=== PATIENT | male | born 1980 | race Asian ===

== ENCOUNTER 2022-10-21 19:44 | Inpatient (IN) | payer MEDICAID ==
[~2022-10-21] VITALS: Ht 162.6 cm; Wt 56.7 kg
--- NOTE | 2022-10-21 19:46 | NUR ---
PT BROUGHT TO BED 6 VIA [facility]
[2022-10-21 19:55] VITALS: BP 136/84; PULSE 113; RESP 26; TEMP 98.4; O2SAT 97
--- NOTE | 2022-10-21 20:02 | NUR ---
ERMD evaluating patient at this time.
--- NOTE | 2022-10-21 20:03 | NUR ---
Patient being evaluated by physician at bedside.
--- NOTE | 2022-10-21 20:18 | NUR ---
PT TO CT VIA [facility]
[2022-10-21 20:27] LABS: BASOPHILS # (AUTO) 0.1 K/uL (0.00-0.22); BASOPHILS % (AUTO) 0.7 % (0.0-2.0); EOSINOPHILS # (AUTO) 0.1 K/uL (0-0.4); EOSINOPHILS % (AUTO) 0.8 % (0.0-4.0); HEMATOCRIT 30.8 % (36-52); HEMOGLOBIN 10.2 g/dL (12.0-18.0); LYMPHOCYTES # (AUTO) 1.1 K/uL (2.0-11.5); LYMPHOCYTES % (AUTO) 13.6 % (20.5-51.1); MEAN CORPUSCULAR HEMOGLOBIN 32 pg (27-31); MEAN CORPUSCULAR HGB CONC 33 g/dL (33-37); MEAN CORPUSCULAR VOLUME 96.7 fL (80-94); MONOCYTES # (AUTO) 0.9 K/uL (0.8-1.0); MONOCYTES % (AUTO) 11.7 % (1.7-9.3); NEUTROPHILS # (AUTO) 5.8 K/uL (1.8-7.7); NEUTROPHILS % (AUTO) 73.2 % (42.2-75.2); PLATELET COUNT (AUTO) 325 K/uL (140-450); RED BLOOD CELL COUNT(AUTO) 3.19 MIL/uL (4.20-6.10); RED CELL DISTRIBUTION WIDTH 16.9 % (11.6-13.7); WHITE BLOOD COUNT (AUTO) 7.9 K/uL (4.8-10.8)
--- NOTE | 2022-10-21 20:31 | NUR ---
pt. wheeled back to bed 6
[2022-10-21 20:47] LABS: PROTHROMBIN TIME 11.3 secs (10.8-13.4)
[2022-10-21 20:50] LABS: ALBUMIN 1.6 g/dL (3.4-5.0); ANION GAP 9.8 (8-16); CARBON DIOXIDE 27.1 mmol/L (21-32); CREATININE 0.8 mg/dL (0.6-1.3); POTASSIUM 3.9 mmol/L (3.5-5.1); TOTAL BILIRUBIN 0.5 mg/dL (0.0-1.0)
--- NOTE | 2022-10-21 20:51 | NUR ---
pt. complained of pain with a scale of "10/10". Dr. Stallings made aware.
--- NOTE | 2022-10-21 20:52 | NUR ---
pt. placed on comfortacle position
--- NOTE | 2022-10-21 21:19 | NUR ---
pt. resting on bed with eyes close. not in distress
[2022-10-21] MEDS ORDERED: MORPHINE SULFATE 4 MG/ML SYR IVP ONE (22:25)
[2022-10-21] MEDS ORDERED: FUROSEMIDE 40 MG/4 ML VIAL IVP ONE (22:25)
[2022-10-21] MEDS ORDERED: ONDANSETRON 4 MG/2 ML VIAL IVP ONE (22:25)
--- NOTE | 2022-10-21 22:33 | NUR ---
Attempted to reconcile home medications for pt with assistance of lola service station manager, Alexis, ID#[id number]. Per pt, he is unable to remember his current medications and he would have to speak to his brother in the morning to help him as his brother works at night.
[2022-10-21] MEDS ORDERED: POTASSIUM CHLORIDE 10 MEQ TABER PO PRN (23:55)
[2022-10-21] MEDS ORDERED: DOCUSATE SODIUM 100 MG GELCAP PO PRN (23:55)
[2022-10-21] MEDS ORDERED: HYDROcodone/APAP 7.5/325 MG 1 TAB PO PRN (23:55)
[2022-10-21] MEDS ORDERED: guaiFENesin DM 200/20 MG-10 ML 10 ML UDC PO PRN (23:55)
[2022-10-21] MEDS ORDERED: NACL 0.9% 1,000 ML IV SCH (23:55)
[2022-10-21] MEDS ORDERED: ACETAMINOPHEN 325 MG TAB PO PRN (23:55)
[2022-10-21] MEDS ORDERED: ZOLPIDEM 5 MG TAB PO PRN (23:55)
[2022-10-21] MEDS ORDERED: ONDANSETRON 4 MG/2 ML VIAL IM/IVP PRN (23:55)
[2022-10-22 00:12] LABS: MAGNESIUM 2.1 mg/dL (1.8-2.4); PHOSPHORUS 3.7 mg/dL (2.5-4.9)
[2022-10-22 00:44] LABS: APPEARANCE,URINE CLEAR (CLEAR); BILIRUBIN,URINE NEGATIVE (NEGATIVE); BLOOD, URINE NEGATIVE (NEGATIVE); COLOR,URINE YELLOW (YELLOW); LEUKOCYTE ESTERASE ,URINE NEGATIVE (NEGATIVE); NITRITE, URINE NEGATIVE (NEGATIVE); UGLUCOSE NEGATIVE (NEGATIVE)
--- NOTE | 2022-10-22 01:26 | NUR ---
resting on bed. not in distress. on monitor
[2022-10-22 01:55] VITALS: PULSE 102; RESP 18; O2SAT 99
--- NOTE | 2022-10-22 02:00 | NUR ---
Patient will be admitted to care of Dr. Mcrae. Admited to TELE. Will go to room 111B. Belongings list completed. Report to Gabe PHILIP. Gabe PHILIP verbalized understanding and no further question
[2022-10-22 04:00] VITALS: BP 138/89; PULSE 102; PULSE 109; RESP 18; TEMP 97.3; O2SAT 99
[2022-10-22] MEDS: PANTOPRAZOLE 40 MG TABEC PO SCH (06:26)
[2022-10-22 06:40] LABS: BASOPHILS # (AUTO) 0.1 K/uL (0.00-0.22); BASOPHILS % (AUTO) 0.7 % (0.0-2.0); EOSINOPHILS # (AUTO) 0.1 K/uL (0-0.4); HEMOGLOBIN 10.6 g/dL (12.0-18.0); LYMPHOCYTES # (AUTO) 1.4 K/uL (2.0-11.5); LYMPHOCYTES % (AUTO) 16.4 % (20.5-51.1); MEAN CORPUSCULAR HEMOGLOBIN 33 pg (27-31); MEAN CORPUSCULAR HGB CONC 33 g/dL (33-37); MEAN CORPUSCULAR VOLUME 97.8 fL (80-94); MONOCYTES # (AUTO) 0.9 K/uL (0.8-1.0); MONOCYTES % (AUTO) 10.6 % (1.7-9.3); NEUTROPHILS # (AUTO) 6.2 K/uL (1.8-7.7); NEUTROPHILS % (AUTO) 71.3 % (42.2-75.2); PLATELET COUNT (AUTO) 296 K/uL (140-450); RED BLOOD CELL COUNT(AUTO) 3.27 MIL/uL (4.20-6.10); RED CELL DISTRIBUTION WIDTH 17.3 % (11.6-13.7); WHITE BLOOD COUNT (AUTO) 8.7 K/uL (4.8-10.8)
[2022-10-22 06:45] LABS: ALBUMIN 1.6 g/dL (3.4-5.0); ANION GAP 10.7 (8-16); CARBON DIOXIDE 25.3 mmol/L (21-32); CREATININE 0.8 mg/dL (0.6-1.3); TOTAL BILIRUBIN 0.6 mg/dL (0.0-1.0)
--- NOTE | 2022-10-22 07:30 | NUR ---
RECEIVED PATIENT FROM NURSE FOR CONTINUITY OF CARE
--- NOTE | 2022-10-22 07:53 | NUR ---
RECEIVED PATIENT FROM NURSE FOR NURSING CARE. PATIENT SEEN ON BED ASLEEP. NORMAL RISE AND FALL OF CHEST OBSERVED. PATIENT VITALS STABLE. PATIENT CARE RESUMED.
[2022-10-22 08:00] VITALS: BP 124/83; PULSE 91; PULSE 98; RESP 16; TEMP 98.4; O2SAT 100
--- NOTE | 2022-10-22 09:00 | NUR ---
PATIENT HAS BEEN SCREENED AND CATEGORIZED LOW NUTRITION RISK. PATIENT WILL BE SEEN WITHIN 7 DAYS OF ADMISSION. 10/29/[address]
--- NOTE | 2022-10-22 11:00 | NUR ---
PATIENT VERBALIZED NO MORE PAIN IN ABDOMEN. REQUESTED FOOD BECAUSE HE WAS HUNGRY. MD NOTIFIED ABOUT NPO FOR BREAKFAST. MD CHANGED DIET ORDER TO REGULAR. PATIENT WAS GIVEN FOOD
--- NOTE | 2022-10-22 14:02 | NUR ---
Attempted to complete a social service assessment with the patient at bedside, however the patient requested I call his father. Telephone call made to the father, Lyndsey Wu, however there was no answer I left a message and requested a returned phone call.
--- NOTE | 2022-10-22 15:51 | NUR ---
DC PLANNING A 42 Y.O. MALE PATIENT ADMITTED IN TELEMETRY FOR PAIN RADIATING TO THE BACK.WAS RECENTLY SEEN AT [facility] AND HAD A PARACENTESIS.PT HAS HX OF LIVER CIRRHOSIS AND ASCITES. GI CX REQUESTED.NH4 LEVEL HIGH (172).CT SCAN PELVIS/ABDOMEN SHOWS ASCITES AND MULTIPLE LESIONS WITHIN THE LIVER WHICH CAN'T EXCLUDE ABSCESS OR NEOPLASM.WITH PRN TYLENOL AND HYDROCODONE FOR PAIN CONTROL .DC PLAN - HOME WHEN PATIENT RESPONDS TO [place].CM TO FOLLOW. Addendum: 10/26/22 at 1204 by Crystal Bobo RN DC PLANNING: PATIENT HAS A DC ORDER TO GO HOME AND FOLLOW UP WITH CARDIAC CLINIC, FOR CIRRHOSIS AND HEPATIC CELLULAR CARCINOMA COMPLICATIONS. CM TO FOLLOW Addendum: 10/26/22 at 1223 by FERNANDO BACON CM RECEIVED ORDER FOR PATIENT TO BE REFERRED TO THE [facility]. PATIENT WILL HAVE TO MAKE HIS OWN APPOINTMENT AFTER DISCHARGE. THE INFORMATION FOR [facility] LOCATED AT [address] [facility] [id number] WAS WRITTEN DOWN ON A STICKY NOTE AND GIVEN TO PATIENT. CALLED [facility] ()[phone] LOCATED AT [address] [id number] SPOKE WITH VERONICA WHO WAS ABLE TO HELP ME SCHEDULE THE SOONEST FOLLOW UP APPOINTMENT FOR 11/19/2022 AT 0945. WENT TO BEDSIDE TO GIVE PATIENT AN APPOINTMENT SLIP. USED MANAGER CONTRACTING MASTER ASHER #[id number] TO EXPLAIN WHAT EACH PAPER WAS AND PATIENT IS AWARE OF EVERYTHING ABOVE.
[2022-10-22 16:00] VITALS: BP 121/83; PULSE 91; RESP 18; TEMP 99; O2SAT 100
--- NOTE | 2022-10-22 19:30 | NUR ---
ENDORSED PATIENT TO PM NURSE FOR CONTINUITY OF CARE.
--- NOTE | 2022-10-22 19:35 | NUR ---
RECEIVED PATIENT FROM AM NURSE FOR CONTINUITY OF CARE.PT IS STABLE
[2022-10-22 20:00] VITALS: BP 111/70; PULSE 98; RESP 18; TEMP 97.2; O2SAT 100
[2022-10-23 04:00] VITALS: BP 118/78; PULSE 94; RESP 18; TEMP 97.9; O2SAT 99
[2022-10-23] MEDS: PANTOPRAZOLE 40 MG TABEC PO SCH (06:26)
[2022-10-23 06:41] LABS: BASOPHILS # (AUTO) 0.1 K/uL (0.00-0.22); BASOPHILS % (AUTO) 0.7 % (0.0-2.0); EOSINOPHILS # (AUTO) 0.1 K/uL (0-0.4); HEMATOCRIT 30.4 % (36-52); HEMOGLOBIN 10.1 g/dL (12.0-18.0); LYMPHOCYTES # (AUTO) 1.1 K/uL (2.0-11.5); LYMPHOCYTES % (AUTO) 12.6 % (20.5-51.1); MEAN CORPUSCULAR HEMOGLOBIN 32 pg (27-31); MEAN CORPUSCULAR HGB CONC 33 g/dL (33-37); MEAN CORPUSCULAR VOLUME 96.9 fL (80-94); MONOCYTES # (AUTO) 0.8 K/uL (0.8-1.0); MONOCYTES % (AUTO) 8.9 % (1.7-9.3); NEUTROPHILS # (AUTO) 6.7 K/uL (1.8-7.7); NEUTROPHILS % (AUTO) 76.8 % (42.2-75.2); PLATELET COUNT (AUTO) 268 K/uL (140-450); RED BLOOD CELL COUNT(AUTO) 3.13 MIL/uL (4.20-6.10); RED CELL DISTRIBUTION WIDTH 17.4 % (11.6-13.7); WHITE BLOOD COUNT (AUTO) 8.7 K/uL (4.8-10.8)
[2022-10-23 06:56] LABS: ALBUMIN 1.5 g/dL (3.4-5.0); ANION GAP 9.1 (8-16); CREATININE 0.9 mg/dL (0.6-1.3); POTASSIUM 4.1 mmol/L (3.5-5.1); TOTAL BILIRUBIN 0.4 mg/dL (0.0-1.0)
--- NOTE | 2022-10-23 07:05 | NUR ---
RECEIVED REPORT FROM NIGHT NURSE YASSINE FOR CONTINUITY OF CARE. ALERT AND ORIENTED X 4. RESP. EVEN AND UNLABORED. IV SITE INTACT, ON SALINE LOCK. NO C/O PAIN OR DISCOMFORT. CALL LIGHT KEPT WITHIN REACH. WILL CONTINUE TO MONITOR.
--- NOTE | 2022-10-23 07:42 | NUR ---
Patient's Plan of Care was discussed and reviewed with MEDIA COORDINATOR: MASON
[2022-10-23 08:00] VITALS: BP 111/76; PULSE 90; RESP 18; TEMP 97.9; O2SAT 100
[2022-10-23 10:07] LABS: HEPATITIS A ANTIBODY IGM Negative (Negative)
[2022-10-23] MEDS ORDERED: LACTULOSE 20 GM/30 ML UDC PO SCH (11:15)
[2022-10-23 11:53] LABS: HEPATITIS B SURFACE ANTIBODY POSITIVE (NONREACTIVE); HEPATITIS B SURFACE ANTIGEN POSITIVE (NEGATIVE)
[2022-10-23 11:54] LABS: HEPATITIS B CORE AB TOTAL POSITIVE (NEGATIVE)
--- NOTE | 2022-10-23 12:42 | NUR ---
LACTULOSE ONCE GIVEN. TOLERATED WELL.
--- NOTE | 2022-10-23 12:45 | NUR ---
PT COMPLAINT OF ABDOMINAL PAIN 02/09. DR. WELLS NOTIFIED WITH NEW ORDER: MORPHINE 2 MG IVP Q 8H PRN SEVERE PAIN. ORDER NOTED AND CARRIED OUT.
[2022-10-23] MEDS ORDERED: MORPHINE SULFATE 2 MG/ML SYR IVP PRN (12:50)
--- NOTE | 2022-10-23 13:08 | NUR ---
PRN MORPHINE 2 MG IVP WAS GIVEN BY KAREN PHILIP. TOLERATED WELL.
[2022-10-23] MEDS ORDERED: HEPARIN PER PHARMACY MC PRN (13:40)
--- NOTE | 2022-10-23 17:10 | NUR ---
Assisted Living Manager [employer] met with pt. who spoke Vietnemese. [employer] utilized the Lateral [employer] for translation. Pt. was groaning and when asked stated he was very uncomfortable and in a lot of pain. Pt. asked if [employer] could let the DrHaroon know and ask for more pain meds. At this time, he told the permit specialist he cannot participate in this interview, but perhaps after the pain meds. [employer] notified Rn. Valdez. [employer] was unable to conduct a Discharge Planning Assessment.
[2022-10-23] MEDS: MORPHINE SULFATE 2 MG/ML SYR IVP PRN ×2 (17:46→21:56)
--- NOTE | 2022-10-23 19:05 | NUR ---
BEDSIDE REPORT GIVEN TO STUNT WOMAN FOR CONTINUITY OF CARE. REMAINS STABLE.
--- NOTE | 2022-10-23 19:37 | NUR ---
RECEIVED REPORT FROM DAY SHIFT NURSE AT BEDSIDE. PT IS IN AND OUT OF SLEEP, NOTICEABLE GRIMACING AND MOVING AROUND IN BED. CURRENTLY ON ROOM AIR WITH NO SIGNS OF ACUTE RESPIRATORY DISTRESS NOTED.IV SITE LOCATED TO LEFT AC 20 GAUGE. OVERALL SKIN IS INTACT. CALL LIGHT PLACED WITHIN REACH, SAFETY MEASURES IN PLACE.
[2022-10-23 20:00] VITALS: BP 124/85; PULSE 91; RESP 18; TEMP 97.8; O2SAT 96
--- NOTE | 2022-10-23 20:00 | NUR ---
Patient's Plan of Care was discussed and reviewed with TAYLOR ALLEN
[2022-10-23] MEDS: LACTULOSE 20 GM/30 ML UDC PO SCH (20:59)
--- NOTE | 2022-10-23 20:59 | NUR ---
SCHEDULED MEDICATIONS ADMINISTERED. PT TOLERATED WELL. WILL CONTINUE TO MONITOR THE PT.
--- NOTE | 2022-10-23 21:50 | NUR ---
PT STATING 9/10 PAIN IN UPPER TO LOWER BACK. POC DISCUSSED AND MORPHINE 2MG IVP WAS ADMINISTERED BY RN: TIFFANY Zamarripa WILL REASSESS PAIN LEVEL IN ONE HOUR.
--- NOTE | 2022-10-23 22:20 | NUR ---
PATIENT CALLED AND COMPLAINED OF PAIN 6/10 IN NECK AND BACK. CHECKED PATIENT'S VITALS AND CHART. BP WAS 131/88, HR WAS 114; MORPHINE WAS APPROPRIATE TO ADMINISTER. MEDICATION ADMINISTERED SUCCESSFULLY WITHOUT ANY ISSUES WITH IV. INFORMED NURSE TAYLOR ALLEN OF ADMINISTRATION.
--- NOTE | 2022-10-23 23:00 | NUR ---
UPON REASSESSMENT, [employer] STACEY WAS USED TO REASSESS PATIENT PAIN LEVEL. PATIENT STATED HE WAS STILL HAVING 9/10 PAIN BUT NOW IN HIS ABDOMEN. PATIENT STATED HE WAS FINE UNTIL HE HAD A BOWEL MOVEMENT, THAN HIS ABDOMEN PAIN STARTED. PROVIDED FURTHER COMFORT MEASURES TO THE PATIENT. [employer] LARD TUB WASHER ASHLEY BOYCE, ID- [id number] WAS PRESENT AND ASSISTED WITH TRANSLATING DURING THE CALL.
--- NOTE | 2022-10-24 00:56 | NUR ---
NOTED AN ORDER FOR HEPARIN DRIP THAT WAS TO BE STARTED AT 1345 10/23/22. POC WAS DISCUSSED WITH CHARGE NURSE: MARLEEN AND HEPARIN DRIP WAS STARTED AT 10ML/HR. PTT WAS ORDERED FOR 0700.
[2022-10-24] MEDS: hePARIN / DEXT 5% PREMIX 250 ML IV SCH ×2 (01:16→23:59)
[2022-10-24] MEDS: MORPHINE SULFATE 2 MG/ML SYR IVP PRN ×3 (02:18→21:07)
--- NOTE | 2022-10-24 02:40 | NUR ---
PATIENT CALLED AND COMPLAINED OF PAIN 6/10 IN NECK AND BACK. CHECKED PATIENT'S VITALS AND CHART. BP WAS 127/89, HR WAS 112; MORPHINE WAS APPROPRIATE TO ADMINISTER. MEDICATION ADMINISTERED SUCCESSFULLY WITHOUT ANY ISSUES WITH IV. INFORMED NURSE TAYLOR ALLEN OF ADMINISTRATION.
[2022-10-24 04:00] VITALS: BP 112/73; PULSE 104; RESP 18; TEMP 97.6; O2SAT 95
--- NOTE | 2022-10-24 05:18 | NUR ---
STARTED NEW IV AT LEFT FOREARM 22 GAUGE SO NOT TO MIX PRN PAIN MEDICATION WITH HEPARIN DRIP.
[2022-10-24] MEDS: PANTOPRAZOLE 40 MG TABEC PO SCH (06:30)
[2022-10-24 06:48] LABS: BASOPHILS % (AUTO) 0.4 % (0.0-2.0); EOSINOPHILS # (AUTO) 0.1 K/uL (0-0.4); EOSINOPHILS % (AUTO) 0.8 % (0.0-4.0); HEMATOCRIT 28.4 % (36-52); HEMOGLOBIN 9.4 g/dL (12.0-18.0); LYMPHOCYTES % (AUTO) 11.2 % (20.5-51.1); MEAN CORPUSCULAR HEMOGLOBIN 32 pg (27-31); MEAN CORPUSCULAR HGB CONC 33 g/dL (33-37); MEAN CORPUSCULAR VOLUME 96.8 fL (80-94); MONOCYTES # (AUTO) 0.9 K/uL (0.8-1.0); MONOCYTES % (AUTO) 10.4 % (1.7-9.3); NEUTROPHILS % (AUTO) 77.2 % (42.2-75.2); PLATELET COUNT (AUTO) 234 K/uL (140-450); RED BLOOD CELL COUNT(AUTO) 2.93 MIL/uL (4.20-6.10); RED CELL DISTRIBUTION WIDTH 18.1 % (11.6-13.7); WHITE BLOOD COUNT (AUTO) 9.1 K/uL (4.8-10.8)
[2022-10-24 07:05] LABS: ALBUMIN 1.5 g/dL (3.4-5.0); ANION GAP 10.3 (8-16); CARBON DIOXIDE 24.3 mmol/L (21-32); CREATININE 0.7 mg/dL (0.6-1.3); POTASSIUM 3.6 mmol/L (3.5-5.1); TOTAL BILIRUBIN 0.5 mg/dL (0.0-1.0)
[2022-10-24 08:00] VITALS: PULSE 99; RESP 18; O2SAT 100
--- NOTE | 2022-10-24 09:00 | NUR ---
CRITICAL LAB VALUE REPORT - APTT HIGH. HEPARIN HELD, WILL HOLD FOR 1HR - REDUCE RATE BY 200 AND CONTINUE PER PROTOCOL.
[2022-10-24] MEDS: LACTULOSE 20 GM/30 ML UDC PO SCH ×2 (09:41→20:40)
[2022-10-24 16:00] VITALS: BP 133/82; PULSE 100; RESP 18; TEMP 97.5; O2SAT 99
--- NOTE | 2022-10-24 19:17 | NUR ---
ENDORSED TO NIGHTSHIFT FOR CONTINUITY OF CARE. PT STABLE, NO SIGNS OF DISTRESS, NO REPORTS OF PAIN OR DISCOMFORT. CALL LIGHT PLACED WITHIN REACH
--- NOTE | 2022-10-24 19:23 | NUR ---
RECEIVED BEDSIDE REPORT FROM DAY SHIFT NURSE. PATIENT IS ASLEEP, NO DISTRESS AT THIS TIME. WILL MAKE FREQUENT ROUNDS.
[2022-10-24 20:00] VITALS: BP 125/91; PULSE 102; RESP 18; TEMP 97.5; O2SAT 99
--- NOTE | 2022-10-24 20:00 | NUR ---
Patient's Plan of Care was discussed and reviewed with TAYLOR ALLEN
--- NOTE | 2022-10-24 21:00 | NUR ---
SCHEDULED MEDICATIONS ADMINISTERED WITH NO COMPLICATIONS. WILL CONTINUE TO MONITOR THE PATIENT.
--- NOTE | 2022-10-24 21:07 | NUR ---
PATIENT IN VISIBLE DISTRESS. MOANING, POINTING, AND RUBBING ABDOMEN REGION. PATIENT REPORTING A PAIN LEVEL OF 10/10. POC WAS DISCUSSED AND MORPHINE 2MG IVP Q4H PRN WAS ADMINISTERED BY RN: TIFFANY Zamarripa WILL REASSESS PAIN LEVEL IN ONE HOUR.
--- NOTE | 2022-10-24 21:30 | NUR ---
ADMINISTERED MORPHINE TO PATIENT FOR PAIN 6/10. REASSESSED PATIENT'S PAIN FIFTEEN MINUTES LATER. PATIENT STATED PAIN WAS REDUCED TO 3/10. WILL CONTINUE TO OBSERVE PATIENT.
--- NOTE | 2022-10-24 23:53 | NUR ---
PATIENTS PTT NOTED AT 43.9. POC DISCUSSED WITH RN: TIFFANY Zamarripa 2300 UNIT BOLUS OF HEPARIN ADMINISTERED AND DRIP RATE CHANGED ACCORDING TO PROTOCOL BY RN: TIFFANY Zamarripa
[2022-10-25] MEDS: MORPHINE SULFATE 2 MG/ML SYR IVP PRN ×2 (02:43→08:22)
--- NOTE | 2022-10-25 03:43 | NUR ---
PATIENT COMPLAINING OF 9/10 PAIN IN ABDOMEN REGION. WAS MEDICATED W/ MORPHINE 2MG IVP AT 0243. UPON REASSESSMENT, PATIENT IS SLEEPING COMFORTABLY, NO VISIBLE SIGNS/SYMPTOMS OF PAIN OR DISTRESS NOTED. WILL CONTINUE MONITORING THE PATIENT.
[2022-10-25 04:00] VITALS: BP 122/77; PULSE 94; RESP 18; TEMP 98.3; O2SAT 99
[2022-10-25] MEDS: PANTOPRAZOLE 40 MG TABEC PO SCH (05:36)
[2022-10-25 06:38] LABS: BASOPHILS % (AUTO) 0.4 % (0.0-2.0); EOSINOPHILS # (AUTO) 0.1 K/uL (0-0.4); EOSINOPHILS % (AUTO) 1.2 % (0.0-4.0); HEMATOCRIT 30.1 % (36-52); HEMOGLOBIN 9.9 g/dL (12.0-18.0); LYMPHOCYTES # (AUTO) 0.9 K/uL (2.0-11.5); LYMPHOCYTES % (AUTO) 13.9 % (20.5-51.1); MEAN CORPUSCULAR HEMOGLOBIN 32 pg (27-31); MEAN CORPUSCULAR HGB CONC 33 g/dL (33-37); MEAN CORPUSCULAR VOLUME 97.1 fL (80-94); MONOCYTES # (AUTO) 0.7 K/uL (0.8-1.0); MONOCYTES % (AUTO) 10.6 % (1.7-9.3); NEUTROPHILS % (AUTO) 73.9 % (42.2-75.2); PLATELET COUNT (AUTO) 183 K/uL (140-450); WHITE BLOOD COUNT (AUTO) 6.7 K/uL (4.8-10.8)
[2022-10-25 06:48] LABS: ALBUMIN 1.6 g/dL (3.4-5.0); ANION GAP 11.2 (8-16); CREATININE 0.7 mg/dL (0.6-1.3); POTASSIUM 4.2 mmol/L (3.5-5.1); TOTAL BILIRUBIN 0.6 mg/dL (0.0-1.0)
--- NOTE | 2022-10-25 07:48 | NUR ---
ENDORSED TO DAY SHIFT NURSE FOR CONTINUITY OF CARE. PT IS STABLE AT THIS TIME. AWAITING RESULTS FOR PTT.
[2022-10-25 08:00] VITALS: PULSE 95; RESP 18; O2SAT 100
[2022-10-25] MEDS: LACTULOSE 20 GM/30 ML UDC PO SCH ×2 (09:01→22:04)
[2022-10-25] MEDS: MORPHINE SULFATE 4 MG/ML SYR IVP PRN ×3 (13:49→22:02)
[2022-10-25 16:00] VITALS: BP 127/85; PULSE 91; RESP 18; TEMP 98.4; O2SAT 100
[2022-10-25] MEDS: hePARIN / DEXT 5% PREMIX 250 ML IV SCH (16:00)
--- NOTE | 2022-10-25 19:00 | NUR ---
PATIENT SEEN ON BED RELAXED AND EATING FOOD. PATIENT VERBALIZES NO PAIN. PATIENT VITALS STABLE.
--- NOTE | 2022-10-25 19:15 | NUR ---
RECEIVED PT ON BED, AWAKE AND ALERT. PT IS ON STABLE CONDITION. ON REGULAR DIET AD IS ON STANDARD PRECAUTION. SKIN IS INTACT. PT ABLE TO VERBALIZED NEEDS.
--- NOTE | 2022-10-25 19:20 | NUR ---
PT IS ON HEPARIN DRIP, NO COMPLAINTS OF PAIN OR DISCOMFORT AT THIS TIME.
[2022-10-25 20:00] VITALS: BP 124/77; PULSE 90; RESP 19; TEMP 98; O2SAT 98
--- NOTE | 2022-10-25 22:02 | NUR ---
PT COMPLAINTS OF SEVERE 8/10 ABDOMINAL PAIN , MORPHINE MEDICATION ADMINISTERED ORDER.
--- NOTE | 2022-10-25 22:02 | NUR ---
REVISED OF PREVIOUS NOTES ON PAIN. PT INSTEAD HAVING SEVERE PAIN OF 10/10 (NOT 8/10).
--- NOTE | 2022-10-26 00:15 | NUR ---
PT IS SLEEPING WELL.
[2022-10-26] MEDS: hePARIN / DEXT 5% PREMIX 250 ML IV SCH ×2 (00:48→09:00)
[2022-10-26 04:00] VITALS: BP 136/82; PULSE 99; RESP 19; TEMP 98.7; O2SAT 98
--- NOTE | 2022-10-26 05:00 | NUR ---
PT IS ASLEEP.
[2022-10-26] MEDS: PANTOPRAZOLE 40 MG TABEC PO SCH (06:40)
[2022-10-26 06:59] LABS: BASOPHILS % (AUTO) 0.2 % (0.0-2.0); EOSINOPHILS # (AUTO) 0.1 K/uL (0-0.4); EOSINOPHILS % (AUTO) 0.9 % (0.0-4.0); HEMATOCRIT 32.3 % (36-52); HEMOGLOBIN 10.7 g/dL (12.0-18.0); LYMPHOCYTES # (AUTO) 0.7 K/uL (2.0-11.5); LYMPHOCYTES % (AUTO) 11.4 % (20.5-51.1); MEAN CORPUSCULAR HEMOGLOBIN 32 pg (27-31); MEAN CORPUSCULAR HGB CONC 33 g/dL (33-37); MONOCYTES # (AUTO) 0.6 K/uL (0.8-1.0); MONOCYTES % (AUTO) 9.5 % (1.7-9.3); PLATELET COUNT (AUTO) 196 K/uL (140-450); RED BLOOD CELL COUNT(AUTO) 3.33 MIL/uL (4.20-6.10); RED CELL DISTRIBUTION WIDTH 18.8 % (11.6-13.7); WHITE BLOOD COUNT (AUTO) 6.5 K/uL (4.8-10.8)
[2022-10-26 07:17] LABS: ALBUMIN 1.6 g/dL (3.4-5.0); ANION GAP 9.7 (8-16); CARBON DIOXIDE 26.4 mmol/L (21-32); CREATININE 0.8 mg/dL (0.6-1.3); POTASSIUM 4.1 mmol/L (3.5-5.1); TOTAL BILIRUBIN 0.7 mg/dL (0.0-1.0)
--- NOTE | 2022-10-26 07:20 | NUR ---
RECEIVED REPORT FROM MANAGER ASSET NURSE FOR CONTINUITY OF CARE. PT AWAKE, ALERT AND ORIENTED, NO SIGN OF DISTRESS. CALL LIGHT WITHIN REACH.
[2022-10-26 08:00] VITALS: PULSE 98; RESP 18; O2SAT 98
[2022-10-26] MEDS: LACTULOSE 20 GM/30 ML UDC PO SCH (08:34)
[2022-10-26] MEDS: MORPHINE SULFATE 4 MG/ML SYR IVP PRN ×2 (08:35→13:20)
[2022-10-26] MEDS ORDERED: SPIR50TA PO (10:30)
[2022-10-26] MEDS ORDERED: LACT-103 PO (10:30)
[2022-10-26] MEDS ORDERED: FURO20TA8 PO (10:30)
[2022-10-26 12:37] VITALS: BP 112/75; PULSE 98; RESP 18; TEMP 98.7
--- NOTE | 2022-10-26 14:20 | NUR ---
PT IS DISCHARGED, EXPLAINED AGAIN HIS MEDICATIONS, APPOINTMENT IN [facility] AND THAT HE NEEDS TO CALL [facility] TO BOOK AN APPOINTMENT. IV AND ID BAND REMOVED. WALKED WITH THE PATIENT AND MET UP WITH THE BROTHER.
--- NOTE | 2022-10-26 14:36 | NUR ---
Filer Repairer DATA INTEGRITY SPECIALIST met with pt. bedside to conduct this discharge planning assessment with the use of the [employer] Post Carrier, Russian. Pt. stated he is really uncomfortable with his medical condition. Pt. was given two appointments cards with doctors names and contacts. One apt. was made for him for 11/19 and the other has info for pt. to make apts. on his own. this was explained to him by the merchandise planner and the rn.
== END 2022-10-26 14:20 | disposition home or self-care (01) | DRG 281 ==
LOC: MED 19:44 → MTU 10-22 00:18
PROVIDERS: ADMIT Student in an Organized Health Care Education/Training Program; ATTEND Student in an Organized Health Care Education/Training Program
DX: C22.0 Liver cell carcinoma (principal); R65.11 Systemic inflammatory response syndrome (SIRS) of non-infectious origin with acute organ dysfunction; E43 Unspecified severe protein-calorie malnutrition; K76.82 Hepatic encephalopathy; R18.8 Other ascites; D63.8 Anemia in other chronic diseases classified elsewhere; E86.0 Dehydration; I50.9 Heart failure, unspecified; I11.0 Hypertensive heart disease with heart failure; K74.60 Unspecified cirrhosis of liver; R74.01 Elevation of levels of liver transaminase levels; Z68.21 Body mass index [BMI] 21.0-21.9, adult; Z80.0 Family history of malignant neoplasm of digestive organs
CPT/HCPCS: 36415; 71045; 74160; 76705; 80053; 81003; 82105; 82140; 83735; 84100; 85025; 85610; 85730; 86704; 86706; 86708; 86709; 86803; 87081; 87340; 96374; 96375; 99285; G0482; J1644; J1940; J2270; J2405; Q0092; Q9967

== ENCOUNTER 2022-10-28 | Inpatient (IN) | payer MEDICAID ==
[~2022-10-28] VITALS: Ht 167.6 cm; Wt 76.7 kg
[2022-10-28] VITALS: BP 129/87; PULSE 102; RESP 19; TEMP 98.8; O2SAT 100
[~2022-10-28] MED LIST: FURO20TA8 PO; LACT-103 PO; SPIR50TA PO
--- NOTE | 2022-10-28 00:09 | NUR ---
PT BROUGHT TO BED 12 VIA [facility]
[2022-10-28 00:45] LABS: BASOPHILS % (AUTO) 0.3 % (0.0-2.0); EOSINOPHILS # (AUTO) 0.1 K/uL (0-0.4); EOSINOPHILS % (AUTO) 1.5 % (0.0-4.0); HEMOGLOBIN 9.6 g/dL (12.0-18.0); LYMPHOCYTES # (AUTO) 0.7 K/uL (2.0-11.5); LYMPHOCYTES % (AUTO) 13.9 % (20.5-51.1); MEAN CORPUSCULAR HEMOGLOBIN 32 pg (27-31); MEAN CORPUSCULAR HGB CONC 33 g/dL (33-37); MEAN CORPUSCULAR VOLUME 98.1 fL (80-94); MONOCYTES # (AUTO) 0.7 K/uL (0.8-1.0); MONOCYTES % (AUTO) 12.8 % (1.7-9.3); NEUTROPHILS # (AUTO) 3.8 K/uL (1.8-7.7); NEUTROPHILS % (AUTO) 71.5 % (42.2-75.2); PLATELET COUNT (AUTO) 164 K/uL (140-450); RED BLOOD CELL COUNT(AUTO) 2.95 MIL/uL (4.20-6.10); RED CELL DISTRIBUTION WIDTH 18.7 % (11.6-13.7); WHITE BLOOD COUNT (AUTO) 5.4 K/uL (4.8-10.8)
[2022-10-28] MEDS ORDERED: MORPHINE SULFATE 4 MG/ML SYR IVP ONE (00:55)
[2022-10-28 00:57] LABS: PROTHROMBIN TIME 11.5 secs (10.8-13.4)
[2022-10-28 00:59] LABS: ALBUMIN 1.7 g/dL (3.4-5.0); ANION GAP 11.3 (8-16); CREATININE 0.7 mg/dL (0.6-1.3); POTASSIUM 4.3 mmol/L (3.5-5.1); TOTAL BILIRUBIN 0.4 mg/dL (0.0-1.0)
[2022-10-28] MEDS ORDERED: DOCUSATE SODIUM 100 MG GELCAP PO PRN (03:25)
[2022-10-28] MEDS ORDERED: ONDANSETRON 4 MG/2 ML VIAL IM/IVP PRN (03:25)
[2022-10-28] MEDS ORDERED: HYDROcodone/APAP 7.5/325 MG 1 TAB PO PRN (03:25)
[2022-10-28] MEDS ORDERED: guaiFENesin DM 200/20 MG-10 ML 10 ML UDC PO PRN (03:25)
[2022-10-28] MEDS ORDERED: POTASSIUM CHLORIDE 10 MEQ TABER PO PRN (03:25)
[2022-10-28] MEDS ORDERED: ZOLPIDEM 5 MG TAB PO PRN (03:25)
[2022-10-28] MEDS ORDERED: ACETAMINOPHEN 325 MG TAB PO PRN (03:25)
[2022-10-28] MEDS: NACL 0.9% 1,000 ML IV SCH ×2 (04:04→20:36)
[2022-10-28 04:07] LABS: AMYLASE 30 U/L (25-115)
[2022-10-28 04:30] VITALS: PULSE 89; PULSE 96; RESP 18; O2SAT 98
--- NOTE | 2022-10-28 04:30 | NUR ---
RECEIVED PATIENT FROM ER VIA [facility] FOR CONTINUITY OF CARE. PT IS AOX4, NO COMPLAIN OF PAIN AT THIS TIME, PIV INTACT AND PATENT. WILL CONTINUE TO MONITOR
--- NOTE | 2022-10-28 04:40 | NUR ---
Report given to Gabe PHILIP for transfer of care.
--- NOTE | 2022-10-28 06:45 | NUR ---
MESSAGED MD REGARDING PATIENT COMPLINING OF PAIN, AWAITING RESPONSE
--- NOTE | 2022-10-28 07:05 | NUR ---
REPORT GIVEN TO YASSINE PYLE. IN STABLE CONDITION. IVF INFUSING WELL.
--- NOTE | 2022-10-28 07:15 | NUR ---
ASSUMED CONTINUITY OF CARE. INITIAL ASSESSMENT DONE. KEEP COMFORTABLE ON BED. EXPLAINED USE OF ESTHER LIGHT/BED/TV/BATHROOM. VERBALIZED UNDERSTANDING. CALL LIGHT WITHIN REACH.
--- NOTE | 2022-10-28 07:15 | NUR ---
ENDORSED PATIENT TO AM NURSE FOR CONTINUITY OF CARE. PT IS STABLE
--- NOTE | 2022-10-28 07:34 | NUR ---
RECEIVED NEW ORDERS FOR PAIN MEDICATIONS TO INCLUDE: MORPHINE 2MG IVP PRN Q6H FOR SEVERE PAIN, GABAPENTIN 300MG PO TID, LIDOCAINE 4% PATCH FOR THE ABDOMEN, AND FLEXRIL 5MG PO QHS.
[2022-10-28 08:00] VITALS: BP 128/87; PULSE 91; RESP 20; TEMP 97.8; O2SAT 97
[2022-10-28] MEDS: MORPHINE SULFATE 2 MG/ML SYR IVP PRN (08:32)
[2022-10-28] MEDS: GABAPENTIN 300 MG CAP PO SCH ×3 (08:48→18:05)
[2022-10-28] MEDS: PANTOPRAZOLE 40 MG TABEC PO SCH (08:48)
[2022-10-28] MEDS: FUROSEMIDE 40 MG TAB PO SCH (08:49)
[2022-10-28] MEDS: SPIRONOLACTONE 50 MG TAB PO SCH (08:49)
[2022-10-28] MEDS: LIDOCAINE 5% 1 EA PATCH TP SCH (08:50)
--- NOTE | 2022-10-28 08:52 | NUR ---
PATIENT HAS BEEN SCREENED AND CATEGORIZED MODERATE NUTRITION RISK. PATIENT WILL BE SEEN WITHIN 3-5 DAYS OF ADMISSION. 10/31/22-11/02/[address]
[2022-10-28 12:00] VITALS: BP 127/81; PULSE 85; PULSE 87; RESP 18; TEMP 98.1; O2SAT 100
--- NOTE | 2022-10-28 15:00 | NUR ---
PARACENTESIS STARTED AT BEDSIDE.
--- NOTE | 2022-10-28 15:40 | NUR ---
[facility] REPORTED THAT PARACENTESIS WAS DONE AND HAD 2200 ML OUTPUT. INFORMED CHARGE NURSE PATRICIA PYLE.
[2022-10-28 16:00] VITALS: BP 121/72; PULSE 90; PULSE 94; RESP 18; TEMP 97.7; O2SAT 100
[2022-10-28 17:29] LABS: APPEARANCE,SPUN,BODY FLUID CLEAR (CLEAR); APPEARANCE,UNSPUN,BODY FLUID SLIGHTLY CLOUDY (CLEAR); SPECIMENTYPE,BODY FLUID PARACENTESIS
[2022-10-28 17:30] LABS: COLOR,BODY FLUID LT YELLOW (LT YELLOW); TOTAL VOLUME,BODY FLUID 5 mL
[2022-10-28 17:31] LABS: RBC, BODY FLUID 62 /cu. mm.; WBC, BODY FLUID 30 /cu. mm.
[2022-10-28 17:38] LABS: POLYNUCLEAR, BODY FLUID 27 %
[2022-10-28 17:40] LABS: GLUCOSE,BODY FLUID 102 mg/dL
--- NOTE | 2022-10-28 19:20 | NUR ---
RECEIVED PT FROM AM NURSE FOR CONTINUITY OF CARE. PT IS STABLE
[2022-10-28 20:00] VITALS: BP 110/72; PULSE 104; PULSE 92; RESP 18; TEMP 98.6; O2SAT 100
[2022-10-28] MEDS ORDERED: CYCLOBENZAPRINE 10 MG TAB PO SCH (21:00)
[2022-10-29] VITALS: BP 104/70; PULSE 87; PULSE 92; RESP 18; TEMP 98.7; O2SAT 100
[2022-10-29 04:00] VITALS: BP 116/81; PULSE 100; PULSE 90; RESP 18; TEMP 98.5; O2SAT 100
[2022-10-29 06:38] LABS: ALBUMIN 1.5 g/dL (3.4-5.0); ANION GAP 9.8 (8-16); CARBON DIOXIDE 28.2 mmol/L (21-32); CREATININE 0.7 mg/dL (0.6-1.3); TOTAL BILIRUBIN 0.4 mg/dL (0.0-1.0)
[2022-10-29 06:47] LABS: BASOPHILS % (AUTO) 0.4 % (0.0-2.0); EOSINOPHILS # (AUTO) 0.1 K/uL (0-0.4); EOSINOPHILS % (AUTO) 1.5 % (0.0-4.0); HEMATOCRIT 29.8 % (36-52); HEMOGLOBIN 10.2 g/dL (12.0-18.0); LYMPHOCYTES # (AUTO) 0.9 K/uL (2.0-11.5); LYMPHOCYTES % (AUTO) 18.1 % (20.5-51.1); MEAN CORPUSCULAR HEMOGLOBIN 33 pg (27-31); MEAN CORPUSCULAR HGB CONC 34 g/dL (33-37); MEAN CORPUSCULAR VOLUME 95.2 fL (80-94); MONOCYTES # (AUTO) 0.6 K/uL (0.8-1.0); NEUTROPHILS # (AUTO) 3.4 K/uL (1.8-7.7); PLATELET COUNT (AUTO) 159 K/uL (140-450); RED BLOOD CELL COUNT(AUTO) 3.13 MIL/uL (4.20-6.10); RED CELL DISTRIBUTION WIDTH 18.3 % (11.6-13.7); WHITE BLOOD COUNT (AUTO) 5.1 K/uL (4.8-10.8)
[2022-10-29 08:00] VITALS: BP 114/77; PULSE 113; PULSE 115; RESP 18; TEMP 97.8; O2SAT 98
[2022-10-29] MEDS: SPIRONOLACTONE 50 MG TAB PO SCH (08:30)
[2022-10-29] MEDS: FUROSEMIDE 40 MG TAB PO SCH (08:31)
[2022-10-29] MEDS: PANTOPRAZOLE 40 MG TABEC PO SCH (08:31)
[2022-10-29] MEDS: GABAPENTIN 300 MG CAP PO SCH (08:31)
[2022-10-29] MEDS: LIDOCAINE 5% 1 EA PATCH TP SCH (08:35)
[2022-10-29] MEDS ORDERED: LID5T TP (10:52)
[2022-10-29] MEDS ORDERED: GABA300C55 PO (10:52)
[2022-10-29] MEDS ORDERED: SPIR50TA PO (10:52)
[2022-10-29] MEDS ORDERED: FURO40TA9 PO (10:52)
[2022-10-29 11:22] VITALS: BP 114/77; PULSE 115; RESP 18; TEMP 97.8
--- NOTE | 2022-10-29 12:07 | NUR ---
DC PLANNING PATIENT WAS ADMITTED TO TELEMETRY FOR ABDOMINAL PAIN DUE TO ASCITES.S/P PARACENTESIS AT [facility] A MONTH AGO.PARACENTESIS DONE 10/28/22.PATIENT WILL BE DISCHARGED TODAY AND WILL FOLLOW UP WITH PCP ON October WITH [facility].
[2022-10-29] MEDS: MORPHINE SULFATE 2 MG/ML SYR IVP PRN (13:15)
== END 2022-10-29 15:55 | disposition home or self-care (01) ==
LOC: MED → MTU 03:29
PROVIDERS: ADMIT Student in an Organized Health Care Education/Training Program; ATTEND Student in an Organized Health Care Education/Training Program
PROC: 0W9G3ZZ Drainage of Peritoneal Cavity, Percutaneous Approach (ICD-10-PCS; principal; 2022-10-28)
DX: K74.60 Unspecified cirrhosis of liver (principal); R18.8 Other ascites; R65.10 Systemic inflammatory response syndrome (SIRS) of non-infectious origin without acute organ dysfunction; E44.0 Moderate protein-calorie malnutrition; Z79.899 Other long term (current) drug therapy; Z68.27 Body mass index [BMI] 27.0-27.9, adult
CPT/HCPCS: 36415; 49083; 71045; 76705; 80053; 82150; 82945; 83690; 84157; 84484; 85025; 85610; 85730; 87070; 87075; 87081; 87205; 89051; 96374; 99285; J0696; J2001; J2270; J7060; Q0092

== ENCOUNTER 2022-10-29 18:27 | Emergency (ER) | payer MEDICAID ==
[~2022-10-29] VITALS: Ht 165.1 cm; Wt 78.0 kg
[~2022-10-29 18:27] MED LIST changes: +FURO40TA9 PO; +GABA300C55 PO; +LID5T TP
[2022-10-29 18:56] VITALS: BP 124/80; PULSE 122; RESP 16; TEMP 99.9; O2SAT 99
[2022-10-29 19:55] VITALS: BP 124/80; PULSE 74; RESP 16; TEMP 98.1; O2SAT 99
--- NOTE | 2022-10-29 19:55 | NUR ---
Patient discharged with v/s stable. Written and verbal after care instructions given and explained. Patient verbalized understanding. Ambulatory with steady gait. All questions addressed prior to discharge. Advised to follow up with PMD.
== END 2022-10-29 19:55 | disposition home or self-care (01) ==
LOC: MED 18:27
DX: K94.23 Gastrostomy malfunction (principal); N18.6 End stage renal disease; Z79.899 Other long term (current) drug therapy; Y84.4 Aspiration of fluid as the cause of abnormal reaction of the patient, or of later complication, without mention of misadventure at the time of the procedure
CPT/HCPCS: 12001; 99282

== ENCOUNTER 2022-11-04 21:41 | Emergency (ER) | payer MEDICAID ==
[~2022-11-04] VITALS: Ht 170.2 cm; Wt 61.2 kg
[2022-11-04 21:41] VITALS: BP 112/69; PULSE 89; RESP 16; TEMP 97.2; O2SAT 99
[~2022-11-04 21:41] MED LIST changes: -FURO20TA8 PO
--- NOTE | 2022-11-04 21:43 | NUR ---
TO LOBBY A/W BED VIA , ELIS WITH C/O ABD PAIN.
--- NOTE | 2022-11-04 22:40 | NUR ---
pt on bed 5, c/o abdominal pain. awake and responsive. not in distress. pt is vitnamese speaking but can speak and understand danish. pt refused to use filtration plant mechanic.
--- NOTE | 2022-11-05 01:48 | NUR ---
ermd at bedside
--- NOTE | 2022-11-05 02:09 | NUR ---
urinal provided to pt. unable to urinate at the moment
[2022-11-05 02:14] LABS: BASOPHILS % (AUTO) 0.5 % (0.0-2.0); EOSINOPHILS # (AUTO) 0.1 K/uL (0-0.4); EOSINOPHILS % (AUTO) 1.2 % (0.0-4.0); HEMATOCRIT 25.7 % (36-52); HEMOGLOBIN 8.5 g/dL (12.0-18.0); LYMPHOCYTES # (AUTO) 1.5 K/uL (2.0-11.5); LYMPHOCYTES % (AUTO) 18.1 % (20.5-51.1); MEAN CORPUSCULAR HEMOGLOBIN 33 pg (27-31); MEAN CORPUSCULAR HGB CONC 33 g/dL (33-37); MEAN CORPUSCULAR VOLUME 99.3 fL (80-94); MONOCYTES # (AUTO) 0.9 K/uL (0.8-1.0); MONOCYTES % (AUTO) 10.7 % (1.7-9.3); NEUTROPHILS # (AUTO) 5.6 K/uL (1.8-7.7); NEUTROPHILS % (AUTO) 69.5 % (42.2-75.2); PLATELET COUNT (AUTO) 197 K/uL (140-450); RED BLOOD CELL COUNT(AUTO) 2.59 MIL/uL (4.20-6.10); RED CELL DISTRIBUTION WIDTH 18.9 % (11.6-13.7)
[2022-11-05 02:29] LABS: ALBUMIN 1.9 g/dL (3.4-5.0); ANION GAP 10.1 (8-16); CARBON DIOXIDE 25.7 mmol/L (21-32); CREATININE 0.8 mg/dL (0.6-1.3); POTASSIUM 4.8 mmol/L (3.5-5.1); TOTAL BILIRUBIN 0.7 mg/dL (0.0-1.0)
--- NOTE | 2022-11-05 03:01 | NUR ---
pt resting on bed with eyes closed. side rail up. not in distress. chest rise and fall symmetrically
--- NOTE | 2022-11-05 04:00 | NUR ---
Note pérezone in EDM - 11/05/22 at 0508 by [email or web address] discharge instruction given to pt. pt suddenly report of pain. used voice obstetric assistant name: Mohan with id# [id number]. Dr. Nieves talked to pt. and explained the current condition. Dr. Nieves instructed the pt to go home and take the prescribed medication and to see primary health doctor/car dumper operator helper.
--- NOTE | 2022-11-05 04:04 | NUR ---
PT RESTING ON BED. PT STATED RELIEVED OF PAIN.
--- NOTE | 2022-11-05 04:10 | NUR ---
ischarge instruction given to pt. pt suddenly report of pain. used voice stoker erector and servicer name: Mohan with id# [id number]. Dr. Nieves talked to pt. and explained the current condition. Dr. Nieves instructed the pt to go home and take the prescribed medication and to see primary health doctor/wheel and pinion inspector.
[2022-11-05] MEDS ORDERED: HYDROcodone/APAP 10/325 MG 1 TAB TAB PO ONE (04:35)
[2022-11-05] MEDS ORDERED: LOPE-289 PO (04:35)
[2022-11-05 05:45] VITALS: BP 114/64; PULSE 90; RESP 16; TEMP 97.6; O2SAT 99
[2022-11-05 06:24] LABS: APPEARANCE,URINE CLEAR (CLEAR); BILIRUBIN,URINE NEGATIVE (NEGATIVE); BLOOD, URINE NEGATIVE (NEGATIVE); COLOR,URINE YELLOW (YELLOW); LEUKOCYTE ESTERASE ,URINE NEGATIVE (NEGATIVE); NITRITE, URINE NEGATIVE (NEGATIVE); UGLUCOSE NEGATIVE (NEGATIVE)
== END 2022-11-05 05:45 | disposition home or self-care (01) ==
LOC: MED 21:41
DX: R18.8 Other ascites (principal); R10.9 Unspecified abdominal pain; G89.29 Other chronic pain; K76.9 Liver disease, unspecified; Z79.899 Other long term (current) drug therapy
CPT/HCPCS: 36415; 80053; 81003; 83605; 83690; 85025; 99285